=== PATIENT | male | born 1940 | race Caucasian/White ===

== ENCOUNTER 2019-01-28 01:23 | Emergency (ER) | payer MEDICARE, MEDICAID ==
[2019-01-28 01:35] VITALS: BMI 28.5
[2019-01-28 01:37] VITALS: RESP 18; TEMP 97.9
--- NOTE | 2019-01-28 01:50 | ED PDOC ---
Arrival/HPI - General Chief Complaint: Back Pain Time Seen by Provider: 01/28/19 01:33 Historian: Patient - History of Present Illness Narrative History of Present Illness (Text): 01/28/19 01:49 Purnima Levine is a 78 year old male, whose past medical history includes chronic back pain, diabetes, chronic kidney disease, CHF, CAD, and hypertension, who presents to the Emergency department complaining of back pain. Patient states he has been experiencing lower back pain radiating down his left leg, worsened with movement, since waking yesterday morning. Patient states he took Lyrica and Celebrex for pain, but denies any significant relief. Patient denies any fever, chills, chest pain, shortness of breath, nausea, vomiting, urinary symptoms, neck pain, headache, dizziness, or any other complaints. PMD: Dr. Fontaine Symptom Onset: Gradual Symptom Course: Unchanged Activities at Onset: Light Context: Home Past Medical History - Provider Review Nursing Documentation Reviewed: Yes - Infectious Disease Hx of Infectious Diseases: None - Cardiac Hx Cardiac Disorders: Yes Hx Cardiac Arrhythmia: Yes Hx Hypertension: Yes - Endocrine/Metabolic Hx Endocrine Disorders: Yes Hx Diabetes Mellitus Type 1: Yes - Musculoskeletal/Rheumatological Hx Musculoskeletal Disorders: Yes Hx Back Pain: Yes Hx Falls: No - Psychiatric Hx Depression: No Hx Emotional Abuse: No Hx Physical Abuse: No Hx Substance Use: No - Anesthesia Hx Anesthesia: No - Suicidal Assessment Feels Threatened In Home Enviroment: No Family/Social History - Physician Review Nursing Documentation Reviewed: Yes Family/Social History: Unknown Family HX Smoking Status: Former Smoker Hx Alcohol Use: No Hx Substance Use: No Hx Substance Use Treatment: No Allergies/Home Meds Allergies/Adverse Reactions: Allergies No Known Allergies Allergy (Verified 01/28/19 01:36) Home Medications: Home Meds Medication Instructions Recorded Confirmed Allopurinol 100 mg PO DAILY 09/22/12 10/22/13 Atorvastatin Calcium [Lipitor] 10 mg PO DAILY 09/22/12 10/22/13 Dabigatran Etexilate Mesylate 150 mg PO BID 09/22/12 10/22/13 [Pradaxa] Docusate Sodium [Col-Rite] 200 mg PO HS 09/22/12 10/22/13 Ergocalciferol [Vitamin D2] 50,000 iu PO DAILY 09/22/12 10/22/13 Iron Fum,Ag/C/B12/Folic/Ca/Suc 1 tab PO DAILY 09/22/12 10/22/13 [Multigen Plus] Losartan [Cozaar] 50 mg PO DAILY 09/22/12 10/22/13 Lubiprostone [Amitiza] 8 mcg PO BID 09/22/12 10/22/13 Metoprolol Succinate 25 mg PO BID 09/22/12 10/22/13 Niacin [Niaspan] 500 mg PO BID 09/22/12 10/22/13 [id number] Ethyl Esters [Lovaza] 2 gm PO BID 09/22/12 10/22/13 Pregabalin [Lyrica] 75 mg PO BID 09/22/12 01/28/19 Vitamin B Complex & Vitamin C 1 tab PO DAILY 09/22/12 10/22/13 [Strovite] Esomeprazole Magnesium [Nexium] 40 mg PO DAILY 08/26/13 10/22/13 Insulin Detemir [Levemir] 16 unit SC HS 08/26/13 10/22/13 SITagliptin [Januvia] 50 mg PO DAILY 08/26/13 10/22/13 Review of Systems - Physician Review All systems were reviewed & negative as marked: Yes - Review of Systems Constitutional: Normal. absent: Fevers Eyes: Normal ENT: Normal Respiratory: Normal. absent: SOB, Cough Cardiovascular: Normal. absent: Chest Pain Gastrointestinal: Normal. absent: Abdominal Pain, Diarrhea, Nausea, Vomiting Genitourinary Male: Normal. absent: Dysuria, Frequency, Hematuria, Urinary Output Changes Musculoskeletal: Back Pain. absent: Neck Pain Skin: Normal. absent: Rash Neurological: Normal. absent: Headache, Dizziness Endocrine: Normal Hemo/Lymphatic: Normal Psychiatric: Normal Physical Exam Vital Signs Reviewed: Yes Vital Signs Temp Pulse Resp BP Pulse Ox 01/28/19 01:36 97.9 F 78 18 90/66 L 99 Temperature: Afebrile Blood Pressure: Normal Pulse: Regular Respiratory Rate: Normal Appearance: Positive for: Well-Appearing, Non-Toxic, Comfortable Pain Distress: None Mental Status: Positive for: Alert and Oriented X 3 - Systems Exam Head: Present: Atraumatic, Normocephalic Pupils: Present: PERRL Extroacular Muscles: Present: EOMI Conjunctiva: Present: Normal Mouth: Present: Moist Mucous Membranes Neck: Present: Normal Range of Motion Respiratory/Chest: Present: Clear to Auscultation, Good Air Exchange. No: Respiratory Distress, Accessory Muscle Use Cardiovascular: Present: Regular Rate and Rhythm, Normal S1, S2. No: Murmurs Abdomen: No: Tenderness, Distention, Peritoneal Signs Back: Present: Paraspinal Tenderness (Paralumbar tenderness), Pain with Leg Raise (Some pain with left straight leg raising). No: CVA Tenderness, Midline Tenderness Upper Extremity: Present: Normal Inspection. No: Cyanosis, Edema Lower Extremity: Present: Normal Inspection. No: Edema Neurological: Present: GCS=15, CN II-XII Intact, Speech Normal Skin: Present: Warm, Dry, Normal Color. No: Rashes Psychiatric: Present: Alert, Oriented x 3, Normal Insight, Normal Concentration Medical Decision Making ED Course and Treatment: 01/28/19 01:49 Impression: 78 year old male complaining of lower back pain radiating down his left leg, worsened with movement. Plan: -- Labs -- Urinalysis -- Flexeril -- Morphine -- Reassess and disposition Prior Visits: Notes and results from previous visits were reviewed. Progress Notes: 01/28/19 04:30 CT Lumbar Spine: Moderate osteopenia of the bones. Grade one anterolisthesis of L4 on L5 measuring 5.7 mm.There are diffuse spondylotic changes. Findings are demonstrated by disc space narrowing, osteophyte formation and degenerative endplate changes. Facet joint arthropathy is noted. No fracture or dislocation is seen. No aggressive bone lesion is noted. Moderate multilevel degenerative disc disease is noted more prominent at L4-L5 and L5-S1 levels. Moderate concentric stenosis at L4-L5. Impression: Spondylosis. Multilevel facet joint arthropathy. No acute bone pathology. Electronically signed on Jan 28, 2019 4:16:24 AM EDT by: Nhung Toth M.D., Certified by ALBERTINA, MSK, Neuroradiology - RAD Interpretation Heel Sprayer: Radiologist - Scribe Statement The provider has reviewed the documentation as recorded by the Too Hernandez Provider Scribe Attestation: All medical record entries made by the Scribe were at my direction and personally dictated by me. I have reviewed the chart and agree that the record accurately reflects my personal performance of the history, physical exam, medical decision making, and the department course for this patient. I have also personally directed, reviewed, and agree with the discharge instructions and disposition. Disposition/Present on Arrival - Present on Arrival Any Indicators Present on Arrival: No History of DVT/PE: No History of Uncontrolled Diabetes: Yes Urinary Catheter: No History of Decub. Ulcer: No History Surgical Site Infection Following: None - Disposition Have Diagnosis and Disposition been Completed?: Yes Diagnosis: Sciatica, Lumbar radiculopathy Disposition: HOME/ ROUTINE Disposition Time: 06:26 Patient Plan: Discharge Patient Problems: Current Active Problems Problem Status Onset Lumbar radiculopathy Acute Sciatica Acute Condition: STABLE Discharge Instructions (ExitCare): Sciatica (DC), Radiculopathy (DC) Additional Instructions: Rest/No strenuous physical activity/take meds as prescribed/follow up with your doctor this week Prescriptions: Tramadol HCl [Ultram] 50 mg PO Q6 PRN #16 tab PRN Reason: Pain, Moderate (4-7) Referrals: Benedict Ramsay MD [Primary Care Provider] - Follow up with primary Forms: appweevr (Jamaican)
[2019-01-28] MEDS ORDERED: Morphine 2 mg/ml ISec IVP STA (01:55)
[2019-01-28 02:13] LABS: HEMOGLOBIN 13.5 g/dL (14.0-18.0); MEAN CELL VOLUME 90.7 fl (80.0-105.0); MEAN CORPUSCULAR HEMOGLOBIN 29.2 pg (25.0-35.0); MEAN CORPUSCULAR HGB CONC 32.1 g/dl (31.0-37.0); MEAN PLATELET VOLUME 9.7 fl (7.0-11.0); RBC 4.63 10^6/uL (3.5-6.1); RED CELL DISTRIBUTION WIDTH 14.3 % (11.5-14.5)
[2019-01-28 02:38] LABS: ALB/GLOB RATIO 1.2 (1.1-1.8); ALBUMIN 4.1 g/dL (3.0-4.8); CALCIUM 9.7 mg/dL (8.4-10.5)
[2019-01-28 04:44] LABS: URINE BILIRUBIN NEGATIVE (NEGATIVE); URINE BLOOD NEGATIVE (NEGATIVE); URINE GLUCOSE (UA) NEGATIVE (NEGATIVE); URINE LEUKOCYTE ESTERASE NEGATIVE Leu/uL (NEGATIVE); URINE PROTEIN NEGATIVE mg/dL (<30 mg/dL); URINE UROBILINOGEN 0.2 E.U./dL (<1 E.U./dL)
[2019-01-28 04:49] LABS: URINE APPEARANCE CLEAR (CLEAR); URINE COLOR YELLOW (YELLOW)
[2019-01-28 06:32] VITALS: BP 130/60; PULSE 90; O2SAT 100
--- NOTE | 2019-01-28 10:34 | CT ---
Date of service: 01/28/2019 PROCEDURE: CT Lumbar Spine without contrast HISTORY: lower back pain COMPARISON: None available. TECHNIQUE: Axial computed tomography images were obtained of the lumbar spine without the use of intravenous contrast. Coronal and sagittal reformatted images were created and reviewed. Radiation dose: Total exam DLP = 1804.46 mGy-cm. This CT exam was performed using one or more of the following dose reduction techniques: Automated exposure control, adjustment of the mA and/or kV according to patient size, and/or use of iterative reconstruction technique. FINDINGS: VERTEBRAE: Unremarkable. No fracture. Normal alignment. DISCS/SPINAL CANAL/NEURAL FORAMINA: Multilevel degenerative disc disease with vacuum disc phenomena, disc bulging and posterior ridging. Multilevel facet arthropathy. PARASPINAL SOFT TISSUES: Unremarkable. OTHER FINDINGS: None. IMPRESSION: No acute fracture.
== END 2019-01-28 06:35 | disposition home or self-care (01) ==
LOC: ED 01:23
DX: M54.16 Radiculopathy, lumbar region (principal); M54.30 Sciatica, unspecified side; N18.9 Chronic kidney disease, unspecified; I12.9 Hypertensive chronic kidney disease with stage 1 through stage 4 chronic kidney disease, or unspecified chronic kidney disease; I50.9 Heart failure, unspecified; I25.10 Atherosclerotic heart disease of native coronary artery without angina pectoris; E10.9 Type 1 diabetes mellitus without complications; Z79.4 Long term (current) use of insulin; Z87.891 Personal history of nicotine dependence
CPT/HCPCS: 72131; 80053; 81003; 85027; 96374; 99284; J2270